=== PATIENT | female | born 1960 | race Caucasian/White ===

== ENCOUNTER → 2018-08-28 06:49 | Outpatient (CLI) | payer OTHER, SELFPAY ==
[2018-08-28 07:54] LABS: Add Manual Diff / Slide Review NO; Basophils Percent Auto 0.7 % (0-2); Eosinophils Percent Auto 2.6 % (2-4); Hematocrit 42.7 % (36-46); Hemoglobin 14.7 g/dL (12.0-16.0); Lymphocytes Percent Auto 24.7 % (25-40); Mean Corpuscular HGB Conc 34.4 % (30-36); Mean Corpuscular Volume 84.5 fL (80-100); Neutrophils Absolute Auto 3300 /uL (3000-5900); Platelet Count 278 X10^3/uL (150-400); Red Blood Cell Count 5.06 X10^6/uL (4.0-5.2); Red Cell Distribution Width 13.2 % (11.6-14.8); White Blood Cell Count 5.1 X10^3/uL (4.5-11.0)
[2018-08-28 08:15] LABS: Alanine Aminotransferase 30 IU/L (9-52); Albumin 4.7 g/dL (3.5-5.0); Albumin Globulin Ratio 1.5 (1.0-2.8); Alkaline Phosphatase 117 U/L (38-126); Aspartate Aminotransferase 32 IU/L (14-36); BUN Creatinine Ratio 27.1 (6-22); Bilirubin Total 0.8 mg/dL (0.2-1.3); Blood Urea Nitrogen 19 mg/dL (7-17); Calcium 9.4 mg/dL (8.4-10.2); Carbon Dioxide 30 mmol/L (22-32); Chloride 102 mmol/L (98-107); Cholesterol 203 mg/dL (140-199); Estimated Glomerular Filt Rate > 60.0 mL/min (>60); Globulin 3.2 g/dL (1.7-4.1); Glucose 99 mg/dL (80-110); HDL Cholesterol 55 mg/dL (40-60); HEMOLYSIS < 15 (0-50); LDL Cholesterol Calculated 127 mg/dL (<100); Potassium 4.2 mmol/L (3.4-5.1); Sodium 145 mmol/L (137-145); Total Protein 7.9 g/dL (6.3-8.2); Triglycerides 105 mg/dL (35-150)
[2018-08-28 09:01] LABS: Thyroid Stimulating Hormone 2.16 uIU/mL (0.47-4.68)
== END ==
PROVIDERS: PCP Nurse Practitioner Family; Visit Provider Nurse Practitioner Family
DX: Z00.00 Encounter for general adult medical examination without abnormal findings (principal); Z13.1 Encounter for screening for diabetes mellitus; Z13.220 Encounter for screening for lipoid disorders; Z13.29 Encounter for screening for other suspected endocrine disorder; Z12.73 Encounter for screening for malignant neoplasm of ovary
CPT/HCPCS: 36415; 80053; 80061; 84443; 85025

== ENCOUNTER → 2021-01-03 08:31 | Outpatient (CLI) | payer OTHER, SELFPAY ==
[2021-01-03] MEDS: COVID-19 VACC #1, MRNA(MOD) 100 MCG/0.5 ML VIAL IM (08:42)
== END ==
PROVIDERS: PCP Nurse Practitioner Family; Visit Provider Internal Medicine
DX: Z23 Encounter for immunization (principal)
CPT/HCPCS: 0011A; 91301

== ENCOUNTER → 2021-01-31 08:11 | Outpatient (CLI) | payer OTHER, SELFPAY ==
[2021-01-31] MEDS: COVID-19 VACC #2, MRNA(MOD) 100 MCG/0.5 ML VIAL IM (08:18)
== END ==
PROVIDERS: PCP Nurse Practitioner Family; Referring Provider Internal Medicine; Visit Provider Internal Medicine
DX: Z23 Encounter for immunization (principal)
CPT/HCPCS: 0012A; 91301

== ENCOUNTER 2022-09-14 03:59 | Emergency (ER) | payer OTHER, SELFPAY ==
[2022-09-14 04:11] VITALS: BP 160/78; PULSE 98; RESP 18; TEMP 36.9; O2SAT 97; BMI 21.6
--- NOTE | 2022-09-14 04:20 | DI.RAD.S_ITS ---
PROCEDURE: XR CHEST 2V INDICATIONS: cough, for 1 week TECHNIQUE: 2 views of the chest were acquired. COMPARISON: [facility], CT, CT ABDOMEN HEPATIC/ADRENAL PROTOCOL, 05/01/2022, 8:51. [facility], CR, CHEST 2 VIEW, 06/11/2016, 9:56. [facility], CR, CHEST 2 VIEW, 08/23/2016, 14:31. FINDINGS: Surgical changes and devices: None. Lungs and pleura: Mild, streaky opacities are seen at the left lung base. No pleural effusions or pneumothorax. Mediastinum: The cardiac contours are within normal limits. The aorta demonstrates calcification and tortuosity. Bones and chest wall: No suspicious bony abnormalities. Age-appropriate bony degenerative changes are seen. Accentuated thoracic kyphosis is seen. Soft tissues appear unremarkable. IMPRESSION: Likely atelectasis versus scarring seen at the left lung base. No zoey, focal infiltrates are seen. Note: No significant discrepancy from the preliminary report. Dictated by: Peter Mattson M.D. on 09/14/2022 at 7:26 Approved by: Peter Mattson M.D. on 09/14/2022 at 7:28
[2022-09-14 04:50] LABS: Influenza A - CEPHEID Flu A POSITIVE (NEGATIVE); Influenza B - CEPHEID Flu B NEGATIVE (NEGATIVE); Respiratory Syncytial Virus Negative (Negative)
[2022-09-14 04:54] LABS: COVID-19 CEPHEID 4-PLEX PCR Negative (Negative)
--- NOTE | 2022-09-14 05:35 | ED_ITS ---
HPI - URI/Sore Throat General Chief Complaint: Upper Respiratory Symptoms Stated Complaint: cough/fever Time Seen by Provider: 09/14/22 05:26 Source: patient Mode of arrival: Ambulatory History of Present Illness HPI Narrative: Patient is a 62-year-old female healthy presents today with 5 days of body aches fever and chills. She says that she has been coughing so hard she feels like her ribs hurt her back hurts she generally is not able to sleep because she is coughing. Last night was the worst night. She denies shortness of breath. She does generally does not feel well. He denies any abdominal pain nausea or vomiting. Now she says she gets into coughing spells and she just can not breathe. Related Data Home Medications Medication Instructions Recorded Confirmed acetaminophen 325 mg tablet 650 mg PO ##0 05/19/17 08/27/20 Previous Rx's Medication Instructions Recorded amoxicillin 875 mg-potassium 875 mg PO BID #20 tabs 08/25/17 clavulanate 125 mg tablet (Augmentin) codeine 8 mg-guaifenesin 200 mg/5 5 ml PO Q6H PRN cough #75 mL 09/14/22 mL oral liquid Allergies Allergy/AdvReac Type Severity Reaction Status Date / Time clarithromycin [From BIAXIN] Allergy Intermediate Stomach Verified 09/14/22 04:11 upset and pain. Sulfa (Sulfonamide Allergy Intermediate Hives Verified 09/14/22 04:11 Antibiotics) [SULFA (SULFONAMIDE ANTIBIOTICS)] naproxen [From ALEVE] Allergy Mild Verified 09/14/22 04:11 acetaminophen Allergy Unknown Verified 09/14/22 04:11 [From SUDAFED PE SEVERE COLD] diphenhydramine Allergy Unknown Verified 09/14/22 04:11 [From SUDAFED PE SEVERE COLD] phenylephrine Allergy Unknown Verified 09/14/22 04:11 [From SUDAFED PE SEVERE COLD] pseudoephedrine Allergy Unknown Verified 09/14/22 04:11 [From SUDAFED] thimerosal [THIMEROSAL] Allergy Unknown Verified 09/14/22 04:11 dialkyl thiovrea Allergy Unknown Uncoded 09/14/22 04:11 p-phenyldiamine Allergy Unknown Uncoded 09/14/22 04:11 Review of Systems Review of Systems Narrative: GENERAL: See HPI HEENT: Denies sinus pain, ear pain, sore throat, difficulty swallowing, neck pain RESPIRATORY: See HPI CARDIOVASCULAR: Denies chest pain, palpitations, orthopnea, edema GASTROINTESTINAL: Denies nausea, vomiting, abdominal pain, diarrhea, constipation, melena. : Denies dysuria, frequency, incontinence, hematuria, urinary retention, flank pain. MUSCULOSKELETAL: Denies weakness, joint pain, or bony pain SKIN: No rash, no erythema, no pruritus NEUROLOGIC: Denies weakness, dizziness, headache, numbness, change in speech, confusion PSYCHIATRIC: No concerning psychosocial issues. 12 point review of systems is negative except for those stated above and HPI Patient History Social History Smoking Status: Never smoker Smoking Status: Never smoker alcohol intake frequency: holidays/special occasions only Substance Use Type: does not use Exam Initial Vital Signs Initial Vital Signs: Vital Signs Temperature 98.4 F 09/14/22 04:11 Pulse Rate 98 H 09/14/22 04:11 Respiratory Rate 18 09/14/22 04:11 Blood Pressure 160/78 H 09/14/22 04:11 Pulse Oximetry 97 09/14/22 04:11 Oxygen Delivery Method 09/14/22 04:11 GENERAL: Alert 62-year-old female appears to not feel well HEENT: Head atraumatic,EOMI, pupils reactive, face symmetric, [moist] mucous membranes CARDIOVASCULAR: Regular rate and rhythm without murmurs, rubs or gallops. RESPIRATORY: Breath sounds equal bilaterally, no wheezes rales or rhonchi. ABDOMEN: Soft, nontender. Normoactive bowel sounds all 4 quadrants. No guarding or rebound. EXTREMITIES: Normal range of motion, no clubbing or edema. Neurovascularly intact NEUROLOGICAL: Alert and oriented x4.Normal gait and speech. SKIN: Warm, dry, no laceration, no petechiae, no rashes or lesions. Course Orders Ordered: ED Orders 09/14/22 04:10 Covid-19 + FLU A/B + RSV - PCR Stat 09/14/22 04:20 XR chest 2V Stat Discontinued Medications Albuterol (Albuterol Hfa Prepack) 1 box MISC SEEINSTR ONE Stop: 09/14/22 05:27 Last Admin: 09/14/22 05:36 Dose: 1 box Documented By: MLM Ketorolac Tromethamine (Ketorolac 30 Mg/Ml Vial) 30 mg IM NOW ONE Stop: 09/14/22 05:27 Vital Signs Vital signs: Vital Signs - 8 hr 09/14/22 04:11 09/14/22 05:46 Temperature 98.4 F Pulse Rate 98 H Respiratory Rate 18 Blood Pressure 160/78 H Pulse Oximetry 97 Oxygen Delivery Method Room Air Room Air MDM - URI/Sore Throat Lab Data Labs: Lab Results 09/14/22 Range/Units 04:10 SARS-CoV-2 (PCR) Negative (Negative) Influenza A (RT-PCR) Flu a positive H (NEGATIVE) Influenza B (RT-PCR) Flu b negative (NEGATIVE) RSV (PCR) Negative (Negative) Imaging Data Chest x-ray: My Impression: No acute cardiopulmonary process Radiologist's Impression: No consolidation minimal left basilar subsegmental atelectasis MDM Narrative Medical decision making narrative: Patient is positive for influenza A. She is on day 5 vitals are stable. Generally appears to not feel well but likely a course of influenza. No need for further workup. She is offered Toradol but due to her multiple chemical sensitivities she does not want to it. He will take ibuprofen at home. She is given inhaler and teaching. Discharge Plan Departure Patient Disposition: Home Clinical Impression: Influenza Instructions: DI for Influenza -- Adult Activity Restrictions/Additional Instructions: *You have been diagnosed with influenza a *What to do: At this time please stay hydrated treat fever and pain with Tylenol and ibuprofen *Continue to take medications as directed--> SENT TO [facility] with codeine 5 mL every 4-6 hours if needed for cough Albuterol inhaler 1-2 puffs every 4 hours if needed for cough Motrin 600 mg every 6 hours if needed for pain or fever Tylenol 1000 mg every 6 hours if needed for pain or fever *Follow up with your primary care provider in 2-3 days or call [phone] *Return to ER if you should have increasing cough decreasing fluid intake increasing shortness of breath or any new, worsening or concerning symptoms Prescriptions: New codeine-guaifenesin 8-200 mg/5 mL liquid 5 ml PO Q6H PRN (Reason: cough) Qty: 75 0RF No Action acetaminophen 325 MG tablet 650 mg PO Qty: 0 amoxicillin-pot clavulanate [Augmentin] 875 MG/125 MG tablet 875 mg PO BID Qty: 20 0RF Referrals: Yvonne Ugalde ARNP [Primary Care Provider] - Visit Report Forms: Patient Portal/API
[2022-09-14] MEDS: ALBUTEROL HFA PREPACK 1 BOX MISC (05:36)
== END 2022-09-14 05:48 | disposition home or self-care (01) ==
PROVIDERS: Emergency Provider Emergency Medicine; PCP Nurse Practitioner Family
DX: J10.1 Influenza due to other identified influenza virus with other respiratory manifestations (principal); Z20.822 Contact with and (suspected) exposure to COVID-19
CPT/HCPCS: 0241U; 71046; 94640; 99281; 99283

== ENCOUNTER → 2023-05-10 08:05 | Outpatient (CLI) | payer OTHER, SELFPAY ==
--- NOTE | 2023-05-10 08:07 | DI.RAD.S_ITS ---
PROCEDURE: XR CHEST 2V INDICATIONS: Cough TECHNIQUE: 2 views of the chest were acquired. COMPARISON: [facility], CR, XR CHEST 2V, 09/14/2022, 4:21. FINDINGS: Surgical changes and devices: Oval buttons from patient gown project over the lateral left upper lung zone/apex and upper soft tissues of the bilateral shoulders. Lungs and pleura: Lungs are clear. No pleural effusions or pneumothorax. Mediastinum: Mediastinal contours are normal. Heart size is normal. Bones and chest wall: No suspicious bony abnormalities. Soft tissues appear unremarkable. IMPRESSION: No acute cardiopulmonary abnormalities or focal airspace disease. Dictated by: Amilcar Covarrubias M.D. on 05/10/2023 at 10:41 Approved by: Amilcar Covarrubias M.D. on 05/10/2023 at 10:41
== END ==
PROVIDERS: PCP Nurse Practitioner Family; Referring Provider Nurse Practitioner Family; Visit Provider Nurse Practitioner Family
DX: R05.9 Cough, unspecified (principal)
CPT/HCPCS: 71046

== ENCOUNTER 2023-12-01 06:46 | Emergency (ER) | payer MEDICARE, OTHER, SELFPAY ==
[2023-12-01 06:52] VITALS: BP 148/88; PULSE 70; RESP 18; TEMP 36.6; O2SAT 99; BMI 22.3
--- NOTE | 2023-12-01 07:24 | ED.HA ---
HPI - Headache General Chief Complaint: Headache Stated Complaint: left eye pain, headache and not feeling well Time Seen by Provider: 12/01/23 07:24 Source: patient, RN notes reviewed and old records reviewed Mode of arrival: Ambulatory Limitations: no limitations History of Present Illness HPI Narrative: 63-year-old female with complaint of left eye pain, headache and irritation for the past 2 weeks. Patient states she has seen Dr. Johanna moran her cartoonist special effects has seen her twice the most recently a week ago for symptoms was put on an antibiotic and steroid drop has had minimal improvement does have follow up tomorrow in the office. She states she has had a headache behind the eye which has been constant. Just not improving not resolving. No fevers or chills. No pain with eye movement. She noticed some whitish crustiness on the skin of her upper cheek in the morning but no crusting of the lashes. She states no other skin changes that she appreciates. She denies any acute vision changes. No cold cough congestion. She has no tenderness over the temporal region. Headache has not changed location. Patient denies chest pain, denies shortness of breath. Denies any nausea or vomiting. She noticed some tingling in her right hand and foot today. She states does not extend into the arm or leg. Patient states no other acute changes. She states it has just been so persistent that she is come to be seen. She never had a rash over that area never had any small blisters or other changes. Denies other major medical issues. Has had prior sinus surgery, has had a partial hysterectomy. 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 She has known allergies to sulfa, thigh dimer saw, Biaxin and a leave but can take ibuprofen. No tobacco, occasional alcohol, no recreational drugs. She does see primary Care regularly through [facility]. Related Data Home Medications Medication Instructions Recorded Confirmed acetaminophen 325 mg tablet 650 mg PO ##0 05/19/17 05/10/23 Previous Rx's Medication Instructions Recorded amoxicillin 875 mg-potassium 875 mg PO BID #20 tabs 08/25/17 clavulanate 125 mg tablet (Augmentin) codeine 8 mg-guaifenesin 200 mg/5 5 ml PO Q6H PRN cough #75 mL 09/14/22 mL oral liquid benzonatate 100 mg capsule 100 mg PO BID PRN cough #20 caps 09/20/22 benzonatate 100 mg capsule 100 mg PO TID PRN cough #20 caps 05/03/23 Allergies Allergy/AdvReac Type Severity Reaction Status Date / Time clarithromycin [From BIAXIN] Allergy Intermediate Stomach Verified 05/10/23 07:44 upset and pain. Sulfa (Sulfonamide Allergy Intermediate Hives Verified 05/10/23 07:44 Antibiotics) [SULFA (SULFONAMIDE ANTIBIOTICS)] naproxen [From ALEVE] Allergy Mild Verified 05/10/23 07:44 acetaminophen Allergy Unknown Verified 05/10/23 07:44 [From SUDAFED PE SEVERE COLD] diphenhydramine Allergy Unknown Verified 05/10/23 07:44 [From SUDAFED PE SEVERE COLD] phenylephrine Allergy Unknown Verified 05/10/23 07:44 [From SUDAFED PE SEVERE COLD] pseudoephedrine Allergy Unknown Verified 05/10/23 07:44 [From SUDAFED] thimerosal [THIMEROSAL] Allergy Unknown Verified 05/10/23 07:44 dialkyl thiovrea Allergy Unknown Uncoded 05/10/23 07:44 p-phenyldiamine Allergy Unknown Uncoded 05/10/23 07:44 Review of Systems Review of Systems ROS Unobtainable: All systems reviewed & are unremarkable except as noted in HPI and below Patient History Social History Smoking Status: Never smoker Smoking Status: Never smoker alcohol intake frequency: holidays/special occasions only Substance Use Type: does not use Exam Narrative Exam Narrative: GEN: well nourished, well appearing female, alert and oriented x 3, patient appears to be in mild distress. HEENT: Atraumatic, pupils are equal round reactive to light, extraocular movements are intact, nontender over the temporal region, no rash no skin changes appreciated, no swelling, nares are clear, TMs are clear with no fluid, there is no conjunctival pallor. Throat is clear without any exudates, erythema, tonsillar enlargement or uvular deviation Visual acuity:20/40 right ,20/40 left with glasses. IOP: Right 17 mm Hg, Left 15 mm Hg General: no globe trauma Eyelids: normal inspection Conjunctiva/Sclera: normal inspection the right, slightly injected sclera on the left, Corneas: Patient has generalized uptake throughout the sclera and hazy over the cornea with no obvious ulcers or abrasions, examined with fluroscein on left. EOM: intact, no palsy/entrapment Pupils: PERRL, normal accomadation, pupil normal Anterior Chambers: normal inspection, no hypema Posterior: normal fundoscopic on bilaterally HEART: Regular rate and rhythm without murmur, clicks, rubs. Pulses are equal in upper and lower extremities LUNGS:Lungs clear to auscultation, no wheezes, rales, crackles, chest moves symmetrically ABD:bowel sounds normal, soft, non-tender, no guarding, rebound, rigidity, no masses noted, no hepatosplenomegaly MSCL: Non-tender, no muscle atrophy, muscles strength 5/5 upper and lower extremities, full range of motion, normal gait NEURO:CN 2-12 intact, sensation normal, finger nose finger test normal, heel henderson test normal SKIN: No acute changes appreciated. Initial Vital Signs Initial Vital Signs: Vital Signs Temperature 98 F 12/01/23 06:52 Pulse Rate 70 12/01/23 06:52 Respiratory Rate 18 12/01/23 06:52 Blood Pressure 148/88 H 12/01/23 06:52 Pulse Oximetry 99 12/01/23 06:52 Oxygen Delivery Method Room Air 12/01/23 06:52 Scores NIH Stroke Scale Level of Conciousness: Alert, keenly responsive Ask month/age: Answers both questions correctly. Open/close eyes, close hand: Performs both tasks correctly Best gaze horizontal: Normal Visual garber: No visual loss Facial palsy: Normal symetrical movement Left arm drift: No drift for full 10 sec Right arm drift: No drift for full 10 sec Left leg drift: No drift for full 5 sec Right leg drift: No drift for full 5 sec Limb ataxia: Absent Sensory on face/arms/legs: Normal, no sensory loss Best language: No aphasia, normal Dysarthria: Normal Extinction or inattention: No abnormality Total NIH Stroke scale score: 0 Course Orders Ordered: Discontinued Medications Acetaminophen (Acetaminophen 325 Mg Tablet) 975 mg PO NOW ONE Stop: 12/01/23 08:43 Last Admin: 12/01/23 09:48 Dose: 975 mg Documented By: MPO Fluorescein Sodium (Fluorescein 1 Mg Strip) 1 mg EYE-LEFT NOW ONE Stop: 12/01/23 08:01 Last Admin: 12/01/23 08:06 Dose: 1 mg Documented By: MARGIE Proparacaine HCl (Proparacaine 0.5% Ophth [place]) 1 drops EYE-BOTH NOW ONE Stop: 12/01/23 08:01 Last Admin: 12/01/23 08:06 Dose: 1 drop Documented By: MARGIE Vital Signs Vital signs: Vital Signs - 8 hr 12/01/23 10:42 12/01/23 10:42 12/01/23 11:00 Pulse Rate 61 Blood Pressure 142/80 H 136/80 Pulse Oximetry 99 12/01/23 11:00 Pulse Rate 58 L Blood Pressure Pulse Oximetry 98 MDM - Headache Lab Data 12/01/23 08:50 12/01/23 08:50 Labs: Lab Results 12/01/23 Range/Units 08:50 WBC 5.3 (4.5-11.0) X10^3/uL RBC 5.13 (4.0-5.2) X10^6/uL Hgb 14.9 (12.0-16.0) g/dL Hct 43.9 (36-46) % MCV 85.6 (80-100) fL MCH 28.9 (26-34) PG MCHC 33.8 (30-36) % RDW 13.1 (11.6-14.8) % Plt Count 254 (150-400) X10^3/uL Neut % (Auto) 65.6 (50-75) % Lymph % (Auto) 25.9 (25-40) % [place] % (Auto) 6.1 (3-14) % Eos % (Auto) 1.8 L (2-4) % Baso % (Auto) 0.6 (0-2) % Neut # (Auto) 3500 (7417-0413) /uL Lymph # (Auto) 1400 (4998-9599) /uL [place] # (Auto) 300 (0-900) /uL Eos # (Auto) 100 (0-450) /uL Baso # (Auto) 0 (0-100) /uL ESR 7 (0-20) MM/HR Sodium 141 (137-145) mmol/L Potassium 4.5 (3.4-5.1) mmol/L Chloride 104 (98-107) mmol/L Carbon Dioxide 29 (22-32) mmol/L BUN 19 H (7-17) mg/dL Creatinine 0.60 (0.52-1.04) mg/dL Estimated GFR > 60 (>60) mL/min BUN/Creatinine Ratio 31.7 H (6-22) Glucose 102 (80-110) mg/dL Calcium 9.4 (8.4-10.2) mg/dL Total Bilirubin 0.7 (0.2-1.3) mg/dL AST 45 H (14-36) IU/L ALT 38 H (<35) IU/L Alkaline Phosphatase 136 H (38-126) U/L C-Reactive Protein < 0.5 (<1.0) mg/dL Total Protein 8.1 (6.3-8.2) g/dL Albumin 4.6 (3.5-5.0) g/dL Globulin 3.5 (1.7-4.1) g/dL Albumin/Globulin Ratio 1.3 (1.0-2.8) MDM Narrative Medical decision making narrative: 63-year-old female with left eye pain some slight irritation who is seen ophthalmology twice has a follow-up tomorrow has not found a clear source according to her report. She has been put on antibiotics and steroid drops for the past week with no improvement has had a persistent headache behind the left eye. Presents today with a little numbness tingling of her right hand and foot although on examination she does not appreciate any sensation changes or different. Patient has normal neurologic exam, no obvious infection other than some slight injection of the conjunctiva on initial exam. Patient eye exam showed some generalized uptake but no ulceration, abrasion, pressures are appropriate. Spoke with Dr. Patrick Leija who is covering for Dr. Johanna moran he reviewed patient's note agrees with plan for follow-up tomorrow, can continue with antibiotics steroid drops but would recommend holding on the additional drop which patient has not started. Unlikely to find as a source but be appropriate to obtain labs including ESR, CRP and CT angiography for evaluation. If negative follow up with office tomorrow. CBC appropriate, ESR is negative, CRP is negative, patient's CMP shows a BUN 19, AST ALT alk-phos slightly elevated. 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 CT angio shows no acute process the arterial tree of the head and neck mild right internal carotid artery stenosis, namely branch of the left proximal ICA. Patient's has some slight injection of her left eye, headache behind the left eye I suspect she has had a prior stroke in the past current symptoms do not seem consistent with stroke. Plan for patient to follow up with Ophthalmology tomorrow was asked to follow up with primary care for overweight long-term management. Discharge Plan Departure Patient Disposition: Home Clinical Impression: Headache, Irritation of left eye Activity Restrictions/Additional Instructions: Follow-up with ophthalmology tomorrow at your appointment. I did speak with them today. Your head CT does not show a clear change for the headache and vision changes. There is a small right anterior mcmullen radiata infarct. Follow-up with your physician as they may put you on some medications. Please return for rapidly worsening symptoms, fevers, persistent vomiting, sudden vision changes, new numbness, tingling or weakness or other new or concerning changes. Prescriptions: No Action benzonatate 100 mg capsule 100 mg PO BID PRN (Reason: cough) Qty: 20 0RF benzonatate 100 mg capsule 100 mg PO TID PRN (Reason: cough) Qty: 20 0RF acetaminophen 325 MG tablet 650 mg PO Qty: 0 amoxicillin-pot clavulanate [Augmentin] 875 MG/125 MG tablet 875 mg PO BID Qty: 20 0RF codeine-guaifenesin 8-200 mg/5 mL liquid 5 ml PO Q6H PRN (Reason: cough) Qty: 75 0RF Referrals: Yvonne Ugalde ARNP [Primary Care Provider] - Stand Alone Forms: Patient Portal/API
[2023-12-01] MEDS: PROPARACAINE 0.5% OPHTH SOL 1 DROPS EYE-BOTH (08:06)
[2023-12-01] MEDS: FLUORESCEIN 1 MG STRIP EYE-LEFT (08:06)
--- NOTE | 2023-12-01 08:33 | DI.CT.S_ITS ---
PROCEDURE: CT ANGIO HEAD AND NECK INDICATIONS: ochoa behind left eye x 2 weeks TECHNIQUE: After the administration of intravenous contrast, 1 mm thick sections acquired from the aortic arch through the [place]. 3-dimensional hgmibcl-hitqhtcvg-cmocplxuxu (MIP) and/or volume rendering reformats were acquired of the central intracranial vasculature and neck separately. For radiation dose reduction, the following was used: automated exposure control, adjustment of mA and/or kV according to patient size. COMPARISON: None. FINDINGS: Image quality: Diagnostic. BRAIN: CSF spaces: Ventricles are normal in size and shape. Basal cisterns are patent. No extra-axial fluid collections. Brain: No significant abnormality of the brain can be seen. Skull and face: Calvarium and facial bones appear intact, without suspicious lesions. Orbits appear normal. Sinuses: Sinuses and mastoids are clear. HEAD CT ANGIOGRAPHY: Anterior circulation: Mild calcific plaque causes mild diffuse stenosis of the cavernous segments of the internal carotid arteries bilaterally. The flow within the paired anterior cerebral arteries is normal and symmetric. The flow within the middle cerebral arteries is normal and symmetric. The anterior communicating artery is seen. No aneurysms are seen. Posterior circulation: Visualized portions of the vertebral arteries demonstrate normal caliber, and join to form a normal appearing basilar artery. Flow within the posterior cerebral arteries is normal and symmetric. No aneurysms are seen. NECK CT ANGIOGRAPHY: Carotid system: The great vessels demonstrate a conventional anatomy as they arise from the aortic arch. The origins of the common carotid arteries appear patent. The common carotid arteries demonstrate normal caliber and courses. Mild, roughly 10% calcific origin stenosis of the bilateral internal carotid arteries. There is an anomalous branch of the left internal carotid artery. The bifurcation regions are both widely patent. The internal carotid arteries demonstrate normal calibers and courses. Posterior circulation: The origins of the vertebral arteries both appear widely patent. The more superior extracranial portions of both vertebral arteries also demonstrate normal courses and calibers. They join to form a normal appearing basilar artery. Soft tissues: Visualized neck soft tissues demonstrate no suspicious abnormalities. Bones: No suspicious bony lesions. Visualized cervical spine appears normally aligned. IMPRESSION: 1. No acute process involving the arterial tree of the head and neck. 2. Mild right internal carotid artery stenosis. 3. 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 Any quantitative measurements of stenosis were performed using NASCET criteria. Dictated by: Jaret Oquendo M.D. on 12/01/2023 at 9:39 Approved by: Jaret Oquendo M.D. on 12/01/2023 at 9:58
--- NOTE | 2023-12-01 08:33 | DI.CT.S_ITS ---
PROCEDURE: CT HEAD/BRAIN WO CON INDICATIONS: ochoa behind left eye x 2 weeks TECHNIQUE: Noncontrast 4.5 mm thick angled axial sections acquired from the foramen magnum to the vertex, with coronal and sagittal reformats. For radiation dose reduction, the following was used: automated exposure control, adjustment of mA and/or kV according to patient size. COMPARISON: None. FINDINGS: Image quality: Diagnostic. CSF spaces: Basal cisterns are patent. No extra-axial fluid collections. The ventricles are symmetric in size and shape. Brain: No intracranial bleeds or masses. 15 mm low-density focus within the right anterior mcmullen radiata. There is cerebral volume loss for age, with resultant ventricular and sulcal prominence. There are periventricular and deep white matter chronic small vessel ischemic changes. There is intracranial internal carotid artery atherosclerosis. Skull and face: Calvarium and visualized facial bones appear intact, without suspicious lesions. Sinuses: Visualized sinuses and mastoids are clear. IMPRESSION: 1. Subacute versus chronic right anterior mcmullen radiata infarct. 2. No acute intracranial abnormality. Dictated by: Jaret Oquendo M.D. on 12/01/2023 at 9:32 Approved by: Jaret Oquendo M.D. on 12/01/2023 at 9:34
[2023-12-01 09:06] LABS: Add Manual Diff / Slide Review NO; Basophils Absolute Auto 0 /uL (0-100); Basophils Percent Auto 0.6 % (0-2); Eosinophils Absolute Auto 100 /uL (0-450); Eosinophils Percent Auto 1.8 % (2-4); Hematocrit 43.9 % (36-46); Hemoglobin 14.9 g/dL (12.0-16.0); Lymphocytes Absolute Auto 1400 /uL (1100-4500); Lymphocytes Percent Auto 25.9 % (25-40); Mean Corpuscular HGB Conc 33.8 % (30-36); Mean Corpuscular Hemoglobin 28.9 PG (26-34); Mean Corpuscular Volume 85.6 fL (80-100); Monocytes Absolute Auto 300 /uL (0-900); Monocytes Percent Auto 6.1 % (3-14); Neutrophils Absolute Auto 3500 /uL (1500-7000); Neutrophils Percent Auto 65.6 % (50-75); Platelet Count 254 X10^3/uL (150-400); Red Blood Cell Count 5.13 X10^6/uL (4.0-5.2); Red Cell Distribution Width 13.1 % (11.6-14.8); White Blood Cell Count 5.3 X10^3/uL (4.5-11.0)
[2023-12-01 09:22] LABS: Alanine Aminotransferase 38 IU/L (<35); Albumin 4.6 g/dL (3.5-5.0); Albumin Globulin Ratio 1.3 (1.0-2.8); Alkaline Phosphatase 136 U/L (38-126); Aspartate Aminotransferase 45 IU/L (14-36); BUN Creatinine Ratio 31.7 (6-22); Bilirubin Total 0.7 mg/dL (0.2-1.3); Blood Urea Nitrogen 19 mg/dL (7-17); C-Reactive Protein Quant < 0.5 mg/dL (<1.0); Calcium 9.4 mg/dL (8.4-10.2); Carbon Dioxide 29 mmol/L (22-32); Chloride 104 mmol/L (98-107); Estimated Glomerular Filt Rate > 60 mL/min (>60); Globulin 3.5 g/dL (1.7-4.1); Glucose 102 mg/dL (80-110); HEMOLYSIS < 15 (0-50); Potassium 4.5 mmol/L (3.4-5.1); Sodium 141 mmol/L (137-145); Total Protein 8.1 g/dL (6.3-8.2)
[2023-12-01] MEDS: ACETAMINOPHEN 325 MG TABLET 975 MG PO (09:48)
[2023-12-01 10:23] LABS: Erythrocyte Sedimentation Rate 7 MM/HR (0-20)
[2023-12-01 10:33] VITALS: PULSE 63; O2SAT 98
[2023-12-01 10:42] VITALS: BP 142/80; PULSE 61; O2SAT 99
[2023-12-01 11:00] VITALS: BP 136/80; PULSE 58; O2SAT 98
== END 2023-12-01 11:33 | disposition home or self-care (01) ==
PROVIDERS: Emergency Provider Emergency Medicine; PCP Nurse Practitioner Family
DX: R51.9 Headache, unspecified (principal); H57.89 Other specified disorders of eye and adnexa; R29.700 NIHSS score 0
CPT/HCPCS: 70450; 70496; 70498; 80053; 85025; 85651; 86140; 99283; Q9967

== ENCOUNTER → 2023-12-02 17:28 | Outpatient (CLI) | payer MEDICARE, OTHER, SELFPAY ==
[2023-12-02 18:08] LABS: Platelet Count 276 X10^3/uL (150-400)
[2023-12-02 18:28] LABS: Uric Acid 4.6 mg/dL (2.5-6.2)
[2023-12-02 18:34] LABS: Rheumatoid Factor < 8.6 IU/mL (<12.0)
[2023-12-02 18:58] LABS: Thyroid Stimulating Hormone 3.24 uIU/mL (0.47-4.68)
[2023-12-03 23:17] LABS: Alanine Aminotransferase 36 IU/L (<35); Albumin 4.5 g/dL (3.5-5.0); Albumin Globulin Ratio 1.3 (1.0-2.8); Alkaline Phosphatase 136 U/L (38-126); Aspartate Aminotransferase 48 IU/L (14-36); BUN Creatinine Ratio 32.8 (6-22); Bilirubin Total 0.6 mg/dL (0.2-1.3); Blood Urea Nitrogen 21 mg/dL (7-17); Calcium 9.4 mg/dL (8.4-10.2); Carbon Dioxide 25 mmol/L (22-32); Chloride 102 mmol/L (98-107); Estimated Glomerular Filt Rate > 60 mL/min (>60); Globulin 3.5 g/dL (1.7-4.1); Glucose 94 mg/dL (80-110); HEMOLYSIS 15 (0-50); Potassium 4.1 mmol/L (3.4-5.1); Sodium 138 mmol/L (137-145)
[2023-12-04 16:24] LABS: SS A Ro Sjogrens Antibody < 0.2 AI (0.0-0.9); SS B La Sjogrens Antibody < 0.2 AI (0.0-0.9)
[2023-12-07 16:37] LABS: ANA Screen, IFA Negative (.)
[2023-12-10 19:07] LABS: HLA B27 Positive (.)
== END ==
LOC: LAB 17:30
PROVIDERS: PCP Nurse Practitioner Family; Referring Provider Ophthalmology; Visit Provider Ophthalmology
DX: H20.012 Primary iridocyclitis, left eye (principal); H16.3 Interstitial and deep keratitis; H57.12 Ocular pain, left eye
CPT/HCPCS: 36415; 80053; 81374; 84443; 84550; 85049; 86038; 86235; 86430

== ENCOUNTER → 2024-01-31 08:25 | Outpatient (CLI) | payer MEDICARE, OTHER, SELFPAY ==
[2024-01-31 09:16] LABS: Influenza A - CEPHEID Flu A NEGATIVE (NEGATIVE); Influenza B - CEPHEID Flu B NEGATIVE (NEGATIVE); Respiratory Syncytial Virus Negative (Negative)
[2024-01-31 09:39] LABS: COVID-19 CEPHEID 4-PLEX PCR Negative (Negative)
== END ==
PROVIDERS: PCP Nurse Practitioner Family; Visit Provider Registered Nurse
DX: J34.89 Other specified disorders of nose and nasal sinuses (principal)
CPT/HCPCS: 0241U